=== PATIENT | male | born 1965 | race Caucasian/White ===

== ENCOUNTER 2022-11-03 08:43 | Outpatient (CLI) | payer OTHER ==
[2022-11-03 15:35] LABS: CK- CREATINE KINASE 132 IU/L (30-223); TRIGLYCERIDES 294 mg/dL (48-352)
== END 2022-11-03 08:44 | disposition home or self-care (01) ==
LOC: LAB.S 08:43
PROVIDERS: ATTEND Nurse Practitioner Acute Care
DX: E78.1 Pure hyperglyceridemia (principal); Z79.899 Other long term (current) drug therapy
CPT/HCPCS: 36415; 82550; 84478

== ENCOUNTER 2023-03-10 08:22 | Outpatient (CLI) | payer OTHER ==
[2023-03-10 14:54] LABS: CHOL/HDL RATIO 7.6 (<5.0); CHOLESTEROL 235 mg/dL; HDL CHOLESTEROL 31 mg/dL; TRIGLYCERIDES 529 mg/dL (48-352)
[2023-03-10 15:33] LABS: LDL CHOLESTEROL,DIRECT 139 mg/dL (75-193); LDLD/HDL RATIO 4.5 (<3.6)
[2023-03-10 15:36] LABS: ESTIMATED AVERAGE GLUCOSE 223 mg/dL (70-100); HEMOGLOBIN A1c% 9.4 % (4.27-6.07)
== END 2023-03-10 08:23 | disposition home or self-care (01) ==
LOC: LAB.S 08:22
PROVIDERS: ATTEND Nurse Practitioner Acute Care
DX: E78.1 Pure hyperglyceridemia (principal); E78.5 Hyperlipidemia, unspecified; E11.8 Type 2 diabetes mellitus with unspecified complications
CPT/HCPCS: 36415; 80061; 83036; 83721

== ENCOUNTER 2023-05-05 09:18 | Outpatient (CLI) | payer OTHER ==
[2023-05-05 15:10] LABS: ALBUMIN 4.1 g/dL (3.2-5.5); ALBUMIN/GLOBULIN RATIO 1.1 (1.0-2.2); ALKALINE PHOSPHATASE 56 IU/L (42-121); ALT ALANINE AMINOTRANSFERASE 19 IU/L (10-60); AST ASPARTATE AMINOTRANSFERASE 15 IU/L (10-42); BILIRUBIN,TOTAL 0.4 mg/dL (0.2-1.0); BUN - BLOOD UREA NITROGEN 17 mg/dL (6-20); CALCIUM 9.4 mg/dL (8.5-10.3); CARBON DIOXIDE - CO2 28 mmol/L (21-32); CHLORIDE 100 mmol/L (101-111); CHOL/HDL RATIO 6.6 (<5.0); CHOLESTEROL 245 mg/dL; CK- CREATINE KINASE 62 IU/L (30-223); GFR - MDRD 76 (>89); GLUCOSE 146 mg/dL (74-104); HDL CHOLESTEROL 37 mg/dL; LDL CHOLESTEROL,CALCULATED 141 mg/dL; LDL/HDL RATIO 3.8 (<3.6); POTASSIUM 4.3 mmol/L (3.5-4.5); SODIUM 135 mmol/L (135-145); TOTAL PROTEIN 7.7 g/dL (6.4-8.9); TRIGLYCERIDES 334 mg/dL (48-352); VLDL CHOLESTEROL 67 mg/dL
== END 2023-05-05 09:19 | disposition home or self-care (01) ==
LOC: LAB.S 09:18
PROVIDERS: ATTEND Nurse Practitioner Acute Care
DX: E78.1 Pure hyperglyceridemia (principal); E78.5 Hyperlipidemia, unspecified; Z79.899 Other long term (current) drug therapy
CPT/HCPCS: 36415; 80053; 80061; 82550; 83721

== ENCOUNTER 2023-07-22 07:11 | Outpatient (CLI) | payer OTHER ==
[2023-07-22 15:30] LABS: ALBUMIN/GLOBULIN RATIO 1.1 (1.0-2.2); ALKALINE PHOSPHATASE 76 IU/L (42-121); ALT ALANINE AMINOTRANSFERASE 27 IU/L (10-60); AST ASPARTATE AMINOTRANSFERASE 16 IU/L (10-42); BILIRUBIN,TOTAL 0.4 mg/dL (0.2-1.0); BUN - BLOOD UREA NITROGEN 18 mg/dL (6-20); CALCIUM 9.6 mg/dL (8.5-10.3); CARBON DIOXIDE - CO2 25 mmol/L (21-32); CHLORIDE 100 mmol/L (101-111); CHOL/HDL RATIO 5.8 (<5.0); CHOLESTEROL 203 mg/dL; CK- CREATINE KINASE 60 IU/L (30-223); CREATININE 1.1 mg/dL (0.6-1.3); GFR - MDRD 69 (>89); GLUCOSE 237 mg/dL (74-104); HDL CHOLESTEROL 35 mg/dL; POTASSIUM 4.4 mmol/L (3.5-4.5); SODIUM 132 mmol/L (135-145); TOTAL PROTEIN 7.5 g/dL (6.4-8.9); TRIGLYCERIDES 482 mg/dL (48-352)
[2023-07-22 16:07] LABS: CREATININE,URINE 156.3 mg/dL; MICROALBUM/CREATININE RATIO,UR 27.5 ug/mg (<30.0); MICROALBUMIN,URINE 4.3 mg/dL
[2023-07-22 16:43] LABS: LDL CHOLESTEROL,DIRECT 109 mg/dL (75-193); LDLD/HDL RATIO 3.1 (<3.6)
== END 2023-07-22 07:12 | disposition home or self-care (01) ==
LOC: LAB.S 07:11
PROVIDERS: ATTEND Nurse Practitioner Acute Care
DX: E11.8 Type 2 diabetes mellitus with unspecified complications (principal); Z12.5 Encounter for screening for malignant neoplasm of prostate; Z79.899 Other long term (current) drug therapy
CPT/HCPCS: 36415; 80053; 80061; 82043; 82550; 82570; 83721; 84153

== ENCOUNTER 2023-09-22 08:59 | Outpatient (CLI) | payer OTHER ==
[2023-09-22 20:06] LABS: ESTIMATED AVERAGE GLUCOSE 177 mg/dL (70-100); HEMOGLOBIN A1c% 7.8 % (4.27-6.07)
== END 2023-09-22 09:00 | disposition home or self-care (01) ==
LOC: LAB.S 08:59
PROVIDERS: ATTEND Nurse Practitioner Acute Care
DX: E11.8 Type 2 diabetes mellitus with unspecified complications (principal)
CPT/HCPCS: 36415; 83036